=== PATIENT | male | born 1965 | race Caucasian/White ===

== ENCOUNTER 2023-02-07 18:47 | Emergency (ER) | payer SELFPAY ==
[2023-02-07 18:49] VITALS: BP 157/93; PULSE 93; RESP 18; TEMP 36.6; O2SAT 96; BMI 29.7
--- NOTE | 2023-02-07 19:06 | EX.ED.DYSGE1 ---
HPI <AURY Arreola Last Filed: 02/07/23 19:33> History of Present Illness Chief Complaint: Sore Throat Narrative Narrative: 4 days ago patient developed pain in his right lower canine tooth. He has partial lower dentures. He was seen at a different ER and prescribed amoxicillin and has taken 4 doses. Since then he has developed sores inside his mouth and a sore throat. He was seen at another ER last night and prescribed nystatin swish and swallow for thrush. He is taking ibuprofen today without pain relief. He has no fever, chills, or difficulty swallowing or breathing. PFSH <AURY Arreola Last Filed: 02/07/23 19:33> PFSH Allergy/AdvReac Type Severity Reaction Status Date / Time tramadol AdvReac Mild Vomiting Verified 02/07/23 18:49 Social History Smoking Status: Current every day smoker tobacco type: cigarettes ROS <AURY Arreola Last Filed: 02/07/23 19:33> ROS ED ROS Narrative Constitutional: Negative for fever, chills, malaise. ENT: Positive for sore throat, RESP: Negative for shortness of breath. GI: Negative for nausea, vomiting. Neuro: Negative for headache. EXAM <AURY Arreola Last Filed: 02/07/23 19:33> Physical Exam Narrative Exam Narrative: CONST: Patient sitting in no acute distress. EYES: Normal inspection. ENT: Lower 4 front incisors have been extracted. Right canine tooth is tender to palpation, some erosion of the gumline with no periapical abscess. No necrotic tissue. Few scattered aphthous ulcers on the buccal mucosa. No trismus or tongue elevation, sublingual space is soft. Uvula is enlarged, no tonsillar swelling or exudate, airway patent. No stridor or drooling. No dysphonia. NECK: Normal inspection. Trachea midline. No masses or lymphadenopathy. RESP: No respiratory distress, CTAB. CVS: Regular rate and rhythm, no murmur, no gallop. SKIN: Color normal, no rash, warm, dry, intact. EXTREMITIES: Normal appearance, no pedal edema. NEURO: Oriented x4. PSYCH: Normal affect. Const Vital Signs: 02/07/23 18:49 02/07/23 19:25 Temperature 97.8 F Temperature Source Temporal Pulse Rate 93 Respiratory Rate 18 Blood Pressure 157/93 H 145/73 H Blood Pressure Mean 114 Pulse Ox 96 Oxygen Delivery Method Room Air <Dr. Mateo Cardoza DO - Last Filed: 02/07/23 23:37> Physical Exam Const Vital Signs: 02/07/23 18:49 02/07/23 19:25 Temperature 97.8 F Temperature Source Temporal Pulse Rate 93 Respiratory Rate 18 Blood Pressure 157/93 H 145/73 H Blood Pressure Mean 114 Pulse Ox 96 Oxygen Delivery Method Room Air MDM <AURY Arreola - Last Filed: 02/07/23 19:33> [facility] Narrative Medical decision making narrative: Patient has taken 4 doses of amoxicillin for a dental infection. He does have dental decay and tenderness over the right lower incisor. There is no periapical abscess or Freddie's angina. He also has a few scattered aphthous ulcers. His airway is patent with signs of uvulitis but no signs of peritonsillar abscess. Trachea is midline. I treated his symptoms with Decadron and Toradol. I recommended he continue amoxicillin and alternate OTC Tylenol and ibuprofen and follow-up with a dentist. <Dr. Mateo Cardoza, - Last Filed: 02/07/23 23:37> [facility] Treatment and Re-Evaluation Comments:: I, Dr Cardoza, have reviewed the above progress note and course of action in the ER; agree with the above. I have personally seen and evaluated this patient, gone over history and physical, and discussed disposition and treatment plan with the patient. Discharge Plan Triage Chief Complaint: Sore Throat ED Midlevel Provider: Mahsa Nixon ED Provider: Mateo Cardoza Dx/Rx/DC Orders Clinical Impression: Dental infection, Aphthous ulcer, Uvulitis Instructions: Dental Abscess, ED Canker Sore, ED Uvulitis Primary Care Provider: Care Physician,No Primary Activity Restrictions/Additional Instructions: Continue amoxicillin which should cover your dental infection and uvulitis (inflammation of the uvula). I recommend alternating Tylenol and ibuprofen every 3 hours. You can take Tylenol 1000 mg, then 3 hours later ibuprofen 600 mg, then alternate. You need to follow-up with a dentist. Disposition Disposition: Home, Self Care Discharge Date/Time: 02/07/23 19:28
[2023-02-07] MEDS: Ketorolac 15 MG/ML Vial IM (19:14)
[2023-02-07] MEDS: dexAMETHasone 10 MG/ML Vial PO.IVFORM (19:16)
[2023-02-07 19:25] VITALS: BP 145/73
== END 2023-02-07 19:28 | disposition home or self-care (01) ==
LOC: ED 19:26
PROVIDERS: Emergency Provider Emergency Medicine; Visit Provider Emergency Medicine
DX: K04.7 Periapical abscess without sinus (principal); K12.0 Recurrent oral aphthae; K12.2 Cellulitis and abscess of mouth; F17.210 Nicotine dependence, cigarettes, uncomplicated
CPT/HCPCS: 96372; 99283

== ENCOUNTER 2023-06-03 13:53 | Emergency (ER) | payer SELFPAY ==
[2023-06-03 13:55] VITALS: BP 153/100; PULSE 110; RESP 18; TEMP 36.2; O2SAT 97; BMI 29.9
--- NOTE | 2023-06-03 15:00 | RAD_ITS ---
STUDY: X-RAY - RIGHT SHOULDER REASON FOR EXAM: Male, 57 years old. Right shoulder pain. TECHNIQUE: 4 view(s) of the shoulder. COMPARISON: None. 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 Normal acromion. Normal humeral head and visualized proximal humerus. The soft tissue structures are unremarkable. Normal visualized pulmonary apex. RAD/Shoulder min 2 Views IMPRESSION: Prosthetic humeral head. Degenerative changes of the acromioclavicular joint. Electronically Signed: Javi Garcia MD at 15:17 EDT ,
[2023-06-03] MEDS: HYDROcodone Bitartrate/Apap 5/325 Tablet PO (15:28)
--- NOTE | 2023-06-03 15:36 | EDS_ITS ---
HPI History of Present Illness Chief Complaint: Upper Extremity Injury Narrative Narrative: 57-year-old male presenting with right shoulder pain. He has history of 10 surgeries on the right shoulder. He sees a Dr. London at [facility]. He supposed to see him next week. Patient was hanging drywall today and reached his right shoulder across his chest hearing a pop in the anterior right shoulder. He is still able to flex, extend, AB duct to some degree but he has pain elicited in the anterior right shoulder. He did not have any direct trauma. No numbness or tingling. PFSH PFSH Home Medications hydrocodone-acetaminophen 5-325mg 5mg-325mg 1 tab PO Q6H PRN PRN Pain 3 days #12 TABLETS 06/03/23 [Rx Last Taken Unknown] Allergy/AdvReac Type Severity Reaction Status Date / Time tramadol AdvReac Mild Vomiting Verified 06/03/23 13:55 Social History Smoking Status: Current every day smoker tobacco type: cigarettes ROS ROS ED Constitutional Constitutional ED: Denies chills, fever(s) or sweats Eyes Eyes: Denies blurry vision or change in vision ENT ENT ED: Denies ear pain or sore throat Cardiovascular Cardiovascular: Denies chest pain, palpitations or racing heartbeat Respiratory/Chest Respiratory/Chest: Denies cough, dyspnea or sputum Gastrointestinal Gastrointestinal: Denies abdominal pain, constipation, diarrhea, nausea or vomiting Genitourinary Genitourinary ED: Denies dysuria, hematuria or urinary frequency Musculoskeletal Musculoskeletal: Reports other Details: Right shoulder pain ; Denies arthralgias, myalgias or neck pain Integumentary Denies abscess, Abrasions or rash Neurologic Neurologic: Denies headache(s), paresthesias or weakness Psychiatric Psychiatric: Denies anxiety, depression, suicidal ideation or suicidal thoughts Endocrine Endocrinology: Denies polydipsia or polyuria EXAM Physical Exam Const Vital Signs: 06/03/23 13:55 Temperature 97.2 F L Temperature Source Temporal Pulse Rate 110 H Respiratory Rate 18 Blood Pressure 153/100 H Blood Pressure Mean 117 Pulse Ox 97 Positive well nourished General Appearance ED: NAD HEENT Reports moist mucous membranes normocephalic and atraumatic Eyes PERRL Resp normal respiratory effort Cardio regular rate and regular rhythm Extremity Extremity Narrative: Tenderness to palpation over the anterior right shoulder. There is a well- healed surgical scar here. Patient able to flex, extend, Abdduct but is limited secondary to pain. His abduction is limited to about 45 degrees. Neuro oriented x3 Sensorium / Orientation: alert Psych mental status grossly normal MDM MDM MDM Narrative Medical decision making narrative: Patient presenting with right shoulder pain. He has had multiple shoulder surgeries. He heard a pop while lifting. Limited range of motion as well. Obtained a shoulder x-ray which on my interpretation shows no acute fracture or subluxation. Given his pain and I will give him some [place] with first dose given in the ED. He has follow-up with his own orthopedic surgeon next week. Return precautions given. Impression: 1. rotator cuff Radiography Diagnostic Testing: Clinical Impression(s) from Imaging Studies Shoulder X-Ray 06/03/23 15:00 IMPRESSION: Prosthetic humeral head. Degenerative changes of the acromioclavicular joint. Electronically Signed: Javi Garcia MD at 15:17 EDT , Discharge Plan Triage Chief Complaint: Upper Extremity Injury ED Provider: Keegan Palmer Dx/Rx/DC Orders Instructions: ED Rotator Cuff Tear Prescriptions: New hydrocodone-acetaminophen 5-325 mg tablet 1 tab PO Q6H PRN PRN (Reason: Pain) 3 Days Qty: 12 0RF Primary Care Provider: Care Physician,No Primary Referrals: Care Physician,No Primary [Primary Care Provider] - Disposition Disposition: Home, Self Care Discharge Date/Time: 06/03/23 15:35
== END 2023-06-03 15:35 | disposition home or self-care (01) ==
LOC: ED 15:24
PROVIDERS: Emergency Provider Student in an Organized Health Care Education/Training Program; Visit Provider Student in an Organized Health Care Education/Training Program
DX: M75.101 Unspecified rotator cuff tear or rupture of right shoulder, not specified as traumatic (principal); M25.511 Pain in right shoulder; F17.210 Nicotine dependence, cigarettes, uncomplicated
CPT/HCPCS: 73030; 99282

== ENCOUNTER 2023-09-06 12:02 | Emergency (ER) | payer SELFPAY ==
[2023-09-06 12:03] VITALS: BP 160/116; PULSE 88; RESP 16; TEMP 36.3; O2SAT 97; BMI 29.5
== END 2023-09-06 14:04 | disposition left against medical advice (07) ==
LOC: ED 14:10
DX: Z53.21 Procedure and treatment not carried out due to patient leaving prior to being seen by health care provider (principal)